=== PATIENT | male | born 1990 | race Asian ===

== ENCOUNTER → 2024-05-18 12:57 | Outpatient (CLI) | payer OTHER, SELFPAY ==
--- NOTE | 2024-05-18 13:00 | DI.RAD.S_ITS ---
PROCEDURE: FL SHOULDER INJECTION MR/CT LT INDICATIONS: PAIN IN LEFT SHOULDER COMPARISON: None. TECHNIQUE: The indications, alternatives, benefits, risks, and complications of the procedure were explained to the patient. Written informed consent was obtained and placed in the chart. The shoulder was examined fluoroscopically and a site for needle placement chosen for entry into the glenohumeral joint from an anterior approach. The skin was prepped and draped in a sterile fashion, and 1% lidocaine infiltrated from skin down to joint capsule. A spinal needle was inserted into the glenohumeral joint, and a small amount of iodinated contrast media injected to confirm intra-articular placement of the needle tip. This was followed by approximately 12 mL dilute solution of a gadolinium containing MR contrast agent. The needle was removed and a dressing was applied. The patient was given postprocedural instructions and sent to the MR suite for MR imaging. FINDINGS: A single fluoroscopic spot image demonstrates intra-articular location of injected iodinated contrast. IMPRESSION: Successful fluoroscopically guided administration of dilute Gadolinium solution into the shoulder joint for MR arthrogram. Dictated by: Yan Cardona M.D. on 05/18/2024 at 15:18 Approved by: Yan Cardona M.D. on 05/18/2024 at 15:18
--- NOTE | 2024-05-18 13:01 | DI.MRI.S_ITS ---
PROCEDURE: MR SHOULDER LT W CON INDICATIONS: PAIN IN LEFT SHOULDER TECHNIQUE: After the administration of 12 mL of dilute intra-articular Gadolinium contrast, oblique coronal T1 and T2 spin echo with fat saturation, oblique sagittal T1 spin echo with and without fat saturation, oblique sagittal T2 fast spin echo with fat saturation, axial T1 spin echo with fat saturation through the shoulder. COMPARISON: [facility] [place], [place], XR SHOULDER 2+ VIEWS LEFT, 04/05/2024, 11:13. FINDINGS: Image quality: Excellent. Rotator cuff: In the supraspinatus, there is mild tendinosis, without tear. The infraspinatus is unremarkable. The teres minor is unremarkable. The subscapularis is unremarkable. No muscle edema or fatty atrophy. Bones and bursae: The acromioclavicular joint is unremarkable. Type 1 acromion. No os acromiale. No significant subacromial/subdeltoid bursitis. Mild subchondral cystic changes at the posterior aspect of the greater tuberosity, reactive. No acute fracture. No focal chondral defect. Capsule and soft tissues: The labrum is intact. No labral tear. The extra-articular biceps tendon is intact. Low-grade interstitial tear of the intra-articular biceps tendon. Large amount of intra-articular contrast distends the glenohumeral joint and the subcoracoid bursa. No contrast extravasation into the subacromial/subdeltoid space. IMPRESSION: 1. Mild tendinosis of the supraspinatus, without tear. 2. Low-grade interstitial tear of the intra-articular biceps tendon. Dictated by: Michelle Mckeon M.D. on 05/18/2024 at 23:24 Approved by: Michelle Mckeon M.D. on 05/18/2024 at 23:31
[2024-05-18] MEDS: SODIUM CHLORIDE 0.9 % 20 ML VIAL IV (13:38)
[2024-05-18] MEDS: LIDOCAINE 1% 20 ML INJ (13:38)
== END ==
PROVIDERS: Referring Provider Orthopaedic Surgery; Visit Provider Orthopaedic Surgery
DX: S46.212A Strain of muscle, fascia and tendon of other parts of biceps, left arm, initial encounter (principal); M25.512 Pain in left shoulder
CPT/HCPCS: 23350; 73040; 73222; A9579; Q9967

== ENCOUNTER 2025-02-24 13:29 | Emergency (ER) | payer OTHER, SELFPAY ==
[2025-02-24 13:44] VITALS: BP 131/78; PULSE 64; RESP 18; TEMP 36.4; O2SAT 98; BMI 29.0
--- NOTE | 2025-02-24 15:50 | ED_ITS ---
HPI - Dental/Oral <Nan Cherry PA-C - Last Filed: 02/24/25 16:49> General Chief complaint: Dental/Oral Stated complaint: RT top jaw hurts- teeth pain while eating Time Seen by Provider: 02/24/25 15:07 Source: patient Mode of arrival: Ambulatory History of Present Illness HPI Narrative: Mr. 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 About 4 days ago the patient noticed right lower molar #2 became painful with eating and chewing with pain radiating to the TMJ. He noticed redness around the base of the tooth on the gum and when he brushes the tooth/ puts pressure a small amount of bleeding occurred which actually relieved some of the pain. He denies fevers, chills, sore throat, neck pain, oropharyngeal swelling, facial swelling or redness. He has been using ibuprofen and topical icy hot patches for pain. Related Data Home Medications Medication Instructions Recorded Confirmed atomoxetine 40 mg capsule 40 mg PO QAM 01/06/25 01/06/25 benazepril 10 mg tablet 10 mg PO DAILY 01/06/25 01/06/25 bupropion HCl 150 mg 24 hr tablet, 150 mg PO DAILY 01/06/25 01/06/25 extended release cetirizine 10 mg tablet 10 mg PO DAILY 01/06/25 01/06/25 sumatriptan succinate 50 mg tablet mg PO 01/06/25 01/06/25 Previous Rx's Medication Instructions Recorded indomethacin 50 mg capsule 50 mg PO BID #30 caps 01/06/25 prednisone 10 mg tablets in a dose See Rx Instructions PO PER PKG DIR 01/06/25 pack #21 ea chlorhexidine gluconate 0.12 % 15 ml buccal DAILY #120 mL 02/24/25 mouthwash (Peridex) penicillin V potassium 500 mg 500 mg PO QID 7 days #28 tabs 02/24/25 tablet Allergies Allergy/AdvReac Type Severity Reaction Status Date / Time No Known Drug Allergies Allergy Verified 02/24/25 13:48 Review of Systems <Nan Cherry PA-C - Last Filed: 02/24/25 16:49> Review of Systems ROS Unobtainable: All systems reviewed & are unremarkable except as noted in HPI and below Patient History <Nan Cherry PA-C - Last Filed: 02/24/25 16:49> Social History Smoking Status: Former smoker Smoking Status: Former smoker tobacco type: vaping Exam <Nan Cherry PA-C - Last Filed: 02/24/25 16:49> Narrative Exam Narrative: GENERAL: 34 year old patient appears stated age. Well-developed patient, in no acute distress. HEAD: Atraumatic. Normocephalic. EYES: PERRL. Extraocular motions intact. No scleral icterus. No injection or drainage. ENT: Patient has erythema of the gingiva surrounding right upper tooth #2. pain with percussion of this tooth, there is a prior silver filling. No fluctuance, edema or drainage surrounding the tooth.Normal TMs bilaterally. Nose without bleeding, purulent drainage. Throat without erythema, tonsillar hypertrophy or exudate. Airway patent. Floor of the mouth is soft and submandibular region soft. NECK: Trachea midline. Cervical ROM intact. CARDIOVASCULAR: Regular rate RESPIRATORY: Nonlabored respirations. Speaking in clear, full sentences. NEURO: AOx3. Clear speech. Moves all 4 extremities appropriately. SKIN: No rash or erythema of visible areas Initial Vital Signs Initial Vital Signs: Vital Signs Temperature 97.6 F 02/24/25 13:44 Pulse Rate 64 02/24/25 13:44 Respiratory Rate 18 02/24/25 13:44 Blood Pressure 131/78 02/24/25 13:44 Pulse Oximetry 98 02/24/25 13:44 Oxygen Delivery Method Room Air 02/24/25 13:44 <Yvette Schilling MD - Last Filed: 02/27/25 05:39> Initial Vital Signs Initial Vital Signs: Vital Signs Temperature 97.6 F 02/24/25 13:44 Pulse Rate 64 02/24/25 13:44 Respiratory Rate 18 02/24/25 13:44 Blood Pressure 131/78 02/24/25 13:44 Pulse Oximetry 98 02/24/25 13:44 Oxygen Delivery Method Room Air 02/24/25 13:44 Course <Nan Cherry PA-C - Last Filed: 02/24/25 16:49> Orders Ordered: Discontinued Medications Penicillin V Potassium (Penicillin Vk 250 Mg Tablet) 500 mg PO NOW ONE Stop: 02/24/25 15:58 Last Admin: 02/24/25 16:47 Dose: 500 mg Documented By: RB Vital Signs Vital signs: Vital Signs - 8 hr 02/24/25 13:44 Temperature 97.6 F Pulse Rate 64 Respiratory Rate 18 Blood Pressure 131/78 Pulse Oximetry 98 Oxygen Delivery Method Room Air <Yvette Schilling MD - Last Filed: 02/27/25 05:39> Orders Ordered: Discontinued Medications Penicillin V Potassium (Penicillin Vk 250 Mg Tablet) 500 mg PO NOW ONE Stop: 02/24/25 15:58 Last Admin: 02/24/25 16:47 Dose: 500 mg Documented By: RB Vital Signs Vital signs: Vital Signs - 8 hr 02/24/25 13:44 Temperature 97.6 F Pulse Rate 64 Respiratory Rate 18 Blood Pressure 131/78 Pulse Oximetry 98 Oxygen Delivery Method Room Air MDM - Dental/Oral <Nan Cherry PA-C - Last Filed: 02/24/25 16:49> [facility] Narrative Medical decision making narrative: 34-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 Differential diagnosis includes but isn't limited to dental infection, pulpitis, periapical abscess, gingivitis, etc. On exam patient is in no acute distress, nontoxic appearing, vital signs within normal limits. His posterior oropharynx is patent, uvula is midline, no oropharyngeal swelling. He does have erythema surrounding tooth 2 And pain with percussion of this tooth. We will treat with penicillin VK 500 mg p.o. q.i.d. x7 days for suspected dental infection, also recommended ibuprofen, acetaminophen, Orajel for pain, frequent mouth rinsing afer eating. Patient verbalized understanding of all information, is agreeable to follow up with dentist. He was given 1st dose of antibiotics in the emergency department. Remainder sent to pharmacy of choice. He is agreement with the plan and stable for discharge home, ED return precautions discussed. Discharge Plan Departure Patient Disposition: Home Clinical Impression: Dental infection Instructions: DI for Dental Pain Activity Restrictions/Additional Instructions: Dear Blas, Today you are being treated for potential right upper tooth infection. Please complete the full course of antibiotics and follow up with a dentist as soon as possible for further management. For pain, please use ibuprofen, acetaminophen, and topical Orajel. Please take Ibuprofen (Motrin/Advil) or Acetaminophen (Tylenol) for pain. These are available over the counter. You may take Ibuprofen 600 mg every 8 hours with food for pain. You may also take Acetaminophen 650 mg every 4-6 hours for pain. Do not exceed 3000 mg of Tylenol a day as this can cause liver damage. Do not drink alcohol with either of these medications. Return to the emergency department if you develop any new or worsening symptoms, fevers, difficulty swallowing, facial swelling or other concerns. Please follow up with your primary care doctor within the next 2-3 days for ER follow-up. (If you do not have a PCP you can call [phone]. to schedule an appointment with an [facility] Primary Care Provider) IF YOU DEVELOP ANY NEW OR WORSENING SYMPTOMS, RETURN TO THE ER! Please read the attached instructions, they highlight more specific treatments and interventions for you at home. Thank you for letting me participate in your care, Nan Cherry PA-C Prescriptions: New penicillin V potassium 500 mg tablet 500 mg PO QID 7 Days Qty: 28 0RF chlorhexidine gluconate [Peridex] 0.12 % mouthwash 15 ml buccal DAILY Qty: 120 0RF No Action prednisone 10 mg tablets,dose pack See Rx Instructions PO PER PKG DIR Qty: 21 0RF Rx Instructions: PO PER PKG DIR indomethacin 50 mg capsule 50 mg PO BID Qty: 30 0RF Rx Instructions: administer with food or milk atomoxetine 40 mg capsule 40 mg PO QAM benazepril 10 mg tablet 10 mg PO DAILY cetirizine 10 mg tablet 10 mg PO DAILY sumatriptan succinate 50 mg tablet PO bupropion HCl 150 mg tablet extended release 24 hr 150 mg PO DAILY Referrals: Miscellaneous,[facility] [Primary Care Provider] - Stand Alone Forms: Patient Portal/API/Survey ED Sign-out <Yvette Schilling MD - Last Filed: 02/27/25 05:39> Cosign ED Attending [place] Attestation: I was immediately available in the department for consultation throughout this patient's visit. Yvette Schilling MD
[2025-02-24] MEDS: PENICILLIN VK 250 MG TABLET 500 MG PO (16:47)
[2025-02-24 16:57] VITALS: BP 120/65; PULSE 64; RESP 14; TEMP 36.3; O2SAT 96
--- NOTE | 2025-02-24 17:18 | PC.NURSE ---
This RN observed all interactions with RN student and patient and reviewed all charting and agree with documentation.
== END 2025-02-24 16:57 | disposition home or self-care (01) ==
PROVIDERS: Emergency Provider Physician Assistant
DX: K04.7 Periapical abscess without sinus (principal)
CPT/HCPCS: 99283

== ENCOUNTER → 2025-05-06 15:04 | Outpatient (CLI) | payer OTHER, SELFPAY ==
--- NOTE | 2025-05-06 | DI.US.S_ITS ---
PROCEDURE: US ABDOMEN LIMITED INDICATIONS: ELEVATED LIVER ENZ TECHNIQUE: Real-time scanning was performed of the abdominal and retroperitoneal organs, with image documentation. COMPARISON: None. FINDINGS: Liver: The liver measures 16.3 cm in vertical diameter. Diffusely increased echogenicity. No focal lesion. Gallbladder: No gallstones. No wall thickening. No pericholecystic edema. Negative sonographic Strickland's sign. Biliary ducts: Intrahepatic bile ducts are non-dilated. Extrahepatic bile duct caliber measures 4 mm. Normal is 6-7 mm or less in diameter, or 10 mm or less post-cholecystectomy. Pancreas: Visualized portions of the pancreas are sonographically normal. Miscellaneous: No free abdominal fluid. IMPRESSION: 1. Hepatic steatosis. No focal lesion seen. 2. No cholelithiasis or biliary dilatation. Dictated by: Mark Lei M.D. on 05/07/2025 at 17:02 Approved by: Mark Lei M.D. on 05/07/2025 at 17:03
== END ==
LOC: US 15:05
PROVIDERS: PCP Physician Assistant; Referring Provider Physician Assistant; Visit Provider Physician Assistant
DX: K76.0 Fatty (change of) liver, not elsewhere classified (principal); R10.9 Unspecified abdominal pain
CPT/HCPCS: 76705